=== PATIENT | male | born 1940 | race Asian ===

== ENCOUNTER 2018-01-08 15:13 | Inpatient (IN) | payer OTHER ==
[2018-01-08 16:44] LABS: ADD MAN DIFF? NO
[2018-01-08 16:50] LABS: BASOPHILS % 0.2 % (0.0-2.0); EOSINOPHILS % 0.2 % (0.0-7.0); LYMPHOCYTES # 3.2 10^3/ul (0.8-2.9); LYMPHOCYTES % 26.2 % (15.0-51.0); MEAN CORPUSCULAR HGB CONC 34.2 g/dl (32.0-37.0); MEAN CORPUSCULAR VOLUME 84.8 fl (82.0-101.0); MEAN PLATELET VOLUME 10.6 fl (7.4-10.4); MONOCYTE # 0.8 10^3/ul (0.3-0.9); MONOCYTES % 6.1 % (0.0-11.0); NEUTROPHIL # 8.2 10^3/ul (1.6-7.5); PLATELET COUNT 186 10^3/UL (140-415); RED BLOOD COUNT 4.48 10^6/ul (4.70-6.10); RED CELL DISTRIBUTION WIDTH 13.8 % (11.5-14.5)
[2018-01-08 16:50] LABS: WHITE BLOOD COUNT 12.3 10^3/ul (4.8-10.8)
[2018-01-08] MEDS: SOD CHLORIDE 0.9% 1,000 ML IV (16:57)
[2018-01-08] MEDS: morphine 4 MG/ML VIAL IV (16:57)
[2018-01-08] MEDS: ONDANSETRON 4 MG INJ IV (16:57)
[2018-01-08 17:07] LABS: ALANINE AMINOTRANSFERASE 46 IU/L (13-69); ALBUMIN 4.4 g/dl (3.3-4.9); ALBUMIN/GLOBULIN RATIO 1.25; ALKALINE PHOSPHATASE 44 IU/L (42-121); ANION GAP 20 (8-16); ASPARTATE AMINO TRANSFERASE 32 IU/L (15-46); BILIRUBIN,INDIRECT 0.9 mg/dl (0-1.1); BILIRUBIN,TOTAL 0.9 mg/dl (0.2-1.3); BLOOD UREA NITROGEN 21 mg/dl (7-20); CALCIUM 9.3 mg/dl (8.4-10.2); CARBON DIOXIDE 24 mmol/L (21-31); CHLORIDE 100 mmol/L (97-110); CREATININE 1.32 mg/dl (0.61-1.24); GLUCOSE 175 mg/dl (70-220); LIPASE 52 U/L (23-300); POTASSIUM 4.1 mmol/L (3.5-5.1); SODIUM 140 mmol/L (135-144); TOTAL PROTEIN 7.9 g/dl (6.1-8.1)
[2018-01-08 17:11] LABS: INR 0.96; PROTIME 12.9 Sec (11.9-14.9)
[2018-01-08 17:12] LABS: PARTIAL THROMBOPLASTIN TIME 26.9 Sec (25.0-35.0)
[2018-01-08 17:19] LABS: TROPONIN-I < 0.012 ng/ml (0.00-0.12)
[2018-01-08] MEDS ORDERED: ACETAMINOPHEN 325 MG TAB PO (17:30)
[2018-01-08] MEDS ORDERED: ONDANSETRON 4 MG INJ IV (17:30)
[2018-01-08] MEDS ORDERED: GLUCAGON 1 MG INJ IM (18:30)
[2018-01-08] MEDS ORDERED: GLUCOSE GEL 15 GRAM TUBE PO ×2 (18:30)
[2018-01-08] MEDS ORDERED: NACL 0.9% 3 ML SYG IV (18:30)
[2018-01-08] MEDS ORDERED: GLUCOSE GEL 15 GRAM TUBE BUCCAL (18:30)
[2018-01-08] MEDS ORDERED: DEXTROSE 50% 50 ML SYRINGE IV ×2 (18:30)
[2018-01-08] MEDS ORDERED: hydrALAzine 20 MG INJ IV (19:00)
[2018-01-08] MEDS: D5W-0.45 NACL + KCL 20 MEQ 1,000 ML IV (19:30)
[2018-01-08] MEDS: INSULIN ASPART [NOVOLOG] 3 ML PEN SC (21:07)
[2018-01-08] MEDS: INSULIN GLARGINE [LANtus] 3 ML PEN SC (21:07)
[2018-01-09] MEDS: INSULIN ASPART [NOVOLOG] 3 ML PEN SC ×6 (01:00→21:00)
[2018-01-09] MEDS: ACCU-CHEK XX (02:00)
[2018-01-09] MEDS: morphine 2 MG INJ IV ×4 (04:43→21:12)
[2018-01-09] MEDS: D5W-0.45 NACL + KCL 20 MEQ 1,000 ML IV ×2 (04:57→17:58)
[2018-01-09] MEDS: ONDANSETRON 4 MG INJ IV ×2 (04:57→11:40)
[2018-01-09 08:56] LABS: ADD MAN DIFF? NO
[2018-01-09 09:01] LABS: BASOPHILS % 0.2 % (0.0-2.0); EOSINOPHILS % 0.3 % (0.0-7.0); HEMATOCRIT 33.9 % (42.0-52.0); HEMOGLOBIN 11.6 g/dl (14.0-18.0); LYMPHOCYTES # 2.3 10^3/ul (0.8-2.9); LYMPHOCYTES % 22.3 % (15.0-51.0); MEAN CORPUSCULAR HEMOGLOBIN 29.1 pg (29.0-33.0); MEAN CORPUSCULAR HGB CONC 34.2 g/dl (32.0-37.0); MEAN CORPUSCULAR VOLUME 85.2 fl (82.0-101.0); MEAN PLATELET VOLUME 10.8 fl (7.4-10.4); MONOCYTE # 0.7 10^3/ul (0.3-0.9); MONOCYTES % 6.4 % (0.0-11.0); NEUTROPHIL # 7.1 10^3/ul (1.6-7.5); NEUTROPHILS % 70.5 % (39.0-77.0); PLATELET COUNT 167 10^3/UL (140-415); RED BLOOD COUNT 3.98 10^6/ul (4.70-6.10); RED CELL DISTRIBUTION WIDTH 13.6 % (11.5-14.5)
[2018-01-09 09:01] LABS: WHITE BLOOD COUNT 10.1 10^3/ul (4.8-10.8)
[2018-01-09 09:09] LABS: HEMOGLOBIN A1C 6.3 % (0-5.9)
[2018-01-09 09:16] LABS: ANION GAP 15 (8-16); BLOOD UREA NITROGEN 16 mg/dl (7-20); CALCIUM 8.6 mg/dl (8.4-10.2); CARBON DIOXIDE 27 mmol/L (21-31); CHLORIDE 104 mmol/L (97-110); CREATININE 1.07 mg/dl (0.61-1.24); GLUCOSE 121 mg/dl (70-220); MAGNESIUM 1.9 mg/dl (1.7-2.5); PHOSPHORUS 3.5 mg/dl (2.5-4.9); SODIUM 142 mmol/L (135-144)
[2018-01-09] MEDS: METOCLOPRAMIDE 10 MG INJ IV (15:18)
[2018-01-09] MEDS: INSULIN GLARGINE [LANtus] 3 ML PEN SC (21:15)
[2018-01-09] MEDS ORDERED: VITAMIN A & D 5 GM OINT PACKET TOP (23:31)
[2018-01-10] MEDS: INSULIN ASPART [NOVOLOG] 3 ML PEN SC ×6 (01:11→21:00)
[2018-01-10] MEDS: ACCU-CHEK XX (02:00)
[2018-01-10] MEDS: ONDANSETRON 4 MG INJ IV ×2 (05:06→17:22)
[2018-01-10] MEDS: morphine 2 MG INJ IV ×2 (05:06→08:39)
[2018-01-10] MEDS: D5W-0.45 NACL + KCL 20 MEQ 1,000 ML IV ×3 (05:11→14:59)
[2018-01-10 05:39] LABS: ADD MAN DIFF? NO
[2018-01-10 05:44] LABS: WHITE BLOOD COUNT 9.5 10^3/ul (4.8-10.8)
[2018-01-10 05:44] LABS: BASOPHILS % 0.1 % (0.0-2.0); EOSINOPHILS % 0.3 % (0.0-7.0); HEMATOCRIT 34.2 % (42.0-52.0); HEMOGLOBIN 11.8 g/dl (14.0-18.0); LYMPHOCYTES % 21.5 % (15.0-51.0); MEAN CORPUSCULAR HEMOGLOBIN 29.4 pg (29.0-33.0); MEAN CORPUSCULAR HGB CONC 34.5 g/dl (32.0-37.0); MEAN CORPUSCULAR VOLUME 85.3 fl (82.0-101.0); MEAN PLATELET VOLUME 10.5 fl (7.4-10.4); MONOCYTE # 0.7 10^3/ul (0.3-0.9); MONOCYTES % 7.8 % (0.0-11.0); NEUTROPHIL # 6.6 10^3/ul (1.6-7.5); PLATELET COUNT 163 10^3/UL (140-415); RED BLOOD COUNT 4.01 10^6/ul (4.70-6.10); RED CELL DISTRIBUTION WIDTH 13.3 % (11.5-14.5)
[2018-01-10 06:15] LABS: ANION GAP 13 (8-16); BLOOD UREA NITROGEN 16 mg/dl (7-20); CALCIUM 8.8 mg/dl (8.4-10.2); CARBON DIOXIDE 28 mmol/L (21-31); CHLORIDE 104 mmol/L (97-110); CREATININE 1.14 mg/dl (0.61-1.24); GLUCOSE 131 mg/dl (70-220); PHOSPHORUS 3.6 mg/dl (2.5-4.9); POTASSIUM 4.3 mmol/L (3.5-5.1); SODIUM 141 mmol/L (135-144)
[2018-01-10] MEDS: INSULIN GLARGINE [LANtus] 3 ML PEN SC (20:35)
[2018-01-11] MEDS: D5W-0.45 NACL + KCL 20 MEQ 1,000 ML IV ×3 (00:37→13:01)
[2018-01-11] MEDS: INSULIN ASPART [NOVOLOG] 3 ML PEN SC ×6 (00:37→20:38)
[2018-01-11] MEDS: ACCU-CHEK XX (02:00)
[2018-01-11 05:39] LABS: WHITE BLOOD COUNT 9.1 10^3/ul (4.8-10.8)
[2018-01-11 05:39] LABS: ADD MAN DIFF? NO; BASOPHILS % 0.1 % (0.0-2.0); EOSINOPHILS # 0.1 10^3/ul (0.0-0.5); EOSINOPHILS % 0.8 % (0.0-7.0); HEMATOCRIT 33.4 % (42.0-52.0); HEMOGLOBIN 11.6 g/dl (14.0-18.0); LYMPHOCYTES # 2.2 10^3/ul (0.8-2.9); LYMPHOCYTES % 24.5 % (15.0-51.0); MEAN CORPUSCULAR HEMOGLOBIN 29.8 pg (29.0-33.0); MEAN CORPUSCULAR HGB CONC 34.7 g/dl (32.0-37.0); MEAN CORPUSCULAR VOLUME 85.9 fl (82.0-101.0); MEAN PLATELET VOLUME 11.1 fl (7.4-10.4); MONOCYTE # 0.8 10^3/ul (0.3-0.9); MONOCYTES % 8.3 % (0.0-11.0); NEUTROPHILS % 65.9 % (39.0-77.0); PLATELET COUNT 153 10^3/UL (140-415); RED BLOOD COUNT 3.89 10^6/ul (4.70-6.10); RED CELL DISTRIBUTION WIDTH 13.2 % (11.5-14.5)
[2018-01-11 06:04] LABS: ANION GAP 14 (8-16); BLOOD UREA NITROGEN 17 mg/dl (7-20); CALCIUM 8.9 mg/dl (8.4-10.2); CARBON DIOXIDE 30 mmol/L (21-31); CHLORIDE 103 mmol/L (97-110); CREATININE 1.19 mg/dl (0.61-1.24); GLUCOSE 125 mg/dl (70-220); PHOSPHORUS 3.8 mg/dl (2.5-4.9); POTASSIUM 4.1 mmol/L (3.5-5.1); SODIUM 143 mmol/L (135-144)
[2018-01-11] MEDS: INSULIN GLARGINE [LANtus] 3 ML PEN SC (20:38)
[2018-01-12] MEDS: INSULIN ASPART [NOVOLOG] 3 ML PEN SC ×6 (01:18→21:03)
[2018-01-12] MEDS: ACCU-CHEK XX (02:00)
[2018-01-12] MEDS: D5W-0.45 NACL + KCL 20 MEQ 1,000 ML IV ×3 (02:05→23:57)
[2018-01-12 05:25] LABS: ADD MAN DIFF? NO
[2018-01-12 05:31] LABS: BASOPHILS % 0.1 % (0.0-2.0); EOSINOPHILS # 0.1 10^3/ul (0.0-0.5); EOSINOPHILS % 0.7 % (0.0-7.0); HEMATOCRIT 34.2 % (42.0-52.0); HEMOGLOBIN 11.7 g/dl (14.0-18.0); LYMPHOCYTES # 2.5 10^3/ul (0.8-2.9); LYMPHOCYTES % 27.6 % (15.0-51.0); MEAN CORPUSCULAR HGB CONC 34.2 g/dl (32.0-37.0); MEAN CORPUSCULAR VOLUME 84.9 fl (82.0-101.0); MEAN PLATELET VOLUME 10.8 fl (7.4-10.4); MONOCYTE # 0.7 10^3/ul (0.3-0.9); MONOCYTES % 7.8 % (0.0-11.0); NEUTROPHIL # 5.7 10^3/ul (1.6-7.5); NEUTROPHILS % 63.6 % (39.0-77.0); PLATELET COUNT 169 10^3/UL (140-415); RED BLOOD COUNT 4.03 10^6/ul (4.70-6.10); RED CELL DISTRIBUTION WIDTH 13.1 % (11.5-14.5)
[2018-01-12 05:31] LABS: WHITE BLOOD COUNT 8.9 10^3/ul (4.8-10.8)
[2018-01-12 05:56] LABS: ANION GAP 15 (8-16); BLOOD UREA NITROGEN 23 mg/dl (7-20); CALCIUM 9.3 mg/dl (8.4-10.2); CARBON DIOXIDE 31 mmol/L (21-31); CHLORIDE 102 mmol/L (97-110); CREATININE 1.16 mg/dl (0.61-1.24); GLUCOSE 135 mg/dl (70-220); MAGNESIUM 2.1 mg/dl (1.7-2.5); PHOSPHORUS 4.4 mg/dl (2.5-4.9); POTASSIUM 3.8 mmol/L (3.5-5.1); SODIUM 144 mmol/L (135-144)
[2018-01-12] MEDS: DIATR MEGLU/DIATRIZOATE SODIUM 120 ML BTL (11:59)
[2018-01-12] MEDS: INSULIN GLARGINE [LANtus] 3 ML PEN SC (21:02)
[2018-01-13] MEDS: INSULIN ASPART [NOVOLOG] 3 ML PEN SC ×6 (01:32→21:00)
[2018-01-13] MEDS: ACCU-CHEK XX ×2 (02:00→21:34)
[2018-01-13 05:07] LABS: ADD MAN DIFF? NO
[2018-01-13 05:12] LABS: WHITE BLOOD COUNT 8.1 10^3/ul (4.8-10.8)
[2018-01-13 05:12] LABS: BASOPHILS % 0.2 % (0.0-2.0); EOSINOPHILS # 0.1 10^3/ul (0.0-0.5); EOSINOPHILS % 1.4 % (0.0-7.0); HEMATOCRIT 35.6 % (42.0-52.0); HEMOGLOBIN 11.7 g/dl (14.0-18.0); LYMPHOCYTES # 2.4 10^3/ul (0.8-2.9); LYMPHOCYTES % 29.6 % (15.0-51.0); MEAN CORPUSCULAR HEMOGLOBIN 28.5 pg (29.0-33.0); MEAN CORPUSCULAR HGB CONC 32.9 g/dl (32.0-37.0); MEAN CORPUSCULAR VOLUME 86.8 fl (82.0-101.0); MEAN PLATELET VOLUME 10.9 fl (7.4-10.4); MONOCYTE # 0.7 10^3/ul (0.3-0.9); MONOCYTES % 9.1 % (0.0-11.0); NEUTROPHIL # 4.8 10^3/ul (1.6-7.5); NEUTROPHILS % 59.5 % (39.0-77.0); PLATELET COUNT 187 10^3/UL (140-415); RED CELL DISTRIBUTION WIDTH 13.2 % (11.5-14.5)
[2018-01-13 05:54] LABS: ANION GAP 17 (8-16); BLOOD UREA NITROGEN 33 mg/dl (7-20); CALCIUM 9.2 mg/dl (8.4-10.2); CARBON DIOXIDE 30 mmol/L (21-31); CHLORIDE 105 mmol/L (97-110); CREATININE 1.37 mg/dl (0.61-1.24); GLUCOSE 114 mg/dl (70-220); MAGNESIUM 2.2 mg/dl (1.7-2.5); PHOSPHORUS 4.9 mg/dl (2.5-4.9); POTASSIUM 3.8 mmol/L (3.5-5.1); SODIUM 148 mmol/L (135-144)
[2018-01-13] MEDS: D5W-0.45 NACL + KCL 20 MEQ 1,000 ML IV (08:05)
[2018-01-13] MEDS: LACTOBACILLUS RHAMNOSUS CAP PO ×2 (12:34→17:43)
[2018-01-13] MEDS ORDERED: INSULIN ASPART [NOVOLOG] 3 ML PEN SC (17:55)
[2018-01-13] MEDS: INSULIN GLARGINE [LANtus] 3 ML PEN SC (21:20)
[2018-01-14 06:29] LABS: ALBUMIN 3.9 g/dl (3.3-4.9); ANION GAP 18 (8-16); BLOOD UREA NITROGEN 34 mg/dl (7-20); CALCIUM 8.8 mg/dl (8.4-10.2); CARBON DIOXIDE 25 mmol/L (21-31); CHLORIDE 104 mmol/L (97-110); CREATININE 1.23 mg/dl (0.61-1.24); GLUCOSE 111 mg/dl (70-220); PHOSPHORUS 4.7 mg/dl (2.5-4.9); SODIUM 143 mmol/L (135-144)
[2018-01-14] MEDS: INSULIN ASPART [NOVOLOG] 3 ML PEN SC ×2 (07:50→13:00)
[2018-01-14] MEDS: LACTOBACILLUS RHAMNOSUS CAP PO ×2 (08:43→12:58)
== END 2018-01-14 13:46 | disposition home health service (06) | DRG 389 ==
LOC: MS4 01-09 01:45 → E/R 15:13 → MS1 01-09 22:39 → PP2 17:05
DX: K56.51 Intestinal adhesions [bands], with partial obstruction (principal); F05 Delirium due to known physiological condition; J98.11 Atelectasis; E11.9 Type 2 diabetes mellitus without complications; I10 Essential (primary) hypertension; R00.1 Bradycardia, unspecified; D64.9 Anemia, unspecified; D72.829 Elevated white blood cell count, unspecified; E78.5 Hyperlipidemia, unspecified; K80.20 Calculus of gallbladder without cholecystitis without obstruction; Z85.46 Personal history of malignant neoplasm of prostate; Z98.890 Other specified postprocedural states; Z79.4 Long term (current) use of insulin
CPT/HCPCS: 36415; 71045; 74176; 74250; 80048; 80053; 80069; 82962; 83036; 83690; 83735; 84100; 84484; 85025; 85610; 85730; 93005; 96361; 96372; 96374; 96375; 97161; 99285-25

== ENCOUNTER 2019-03-12 04:19 | Inpatient (IN) | payer OTHER ==
[2019-03-12] MEDS: morphine 2 MG INJ IV ×4 (05:10→21:17)
[2019-03-12] MEDS: ONDANSETRON 4 MG INJ IV ×3 (05:10→16:22)
[2019-03-12] MEDS: SOD CHLORIDE 0.9% 500 ML IV (05:11)
[2019-03-12 05:43] LABS: ADD MAN DIFF? NO
[2019-03-12 06:03] LABS: WHITE BLOOD COUNT 15.5 10^3/ul (4.8-10.8)
[2019-03-12 06:03] LABS: BASOPHILS % 0.2 % (0.0-2.0); EOSINOPHILS % 0.3 % (0.0-7.0); HEMATOCRIT 39.4 % (42.0-52.0); HEMOGLOBIN 13.2 g/dl (14.0-18.0); LYMPHOCYTES # 3.5 10^3/ul (0.8-2.9); LYMPHOCYTES % 22.5 % (15.0-51.0); MEAN CORPUSCULAR HEMOGLOBIN 28.8 pg (29.0-33.0); MEAN CORPUSCULAR HGB CONC 33.5 g/dl (32.0-37.0); MONOCYTE # 0.7 10^3/ul (0.3-0.9); MONOCYTES % 4.6 % (0.0-11.0); NEUTROPHIL # 11.2 10^3/ul (1.6-7.5); NEUTROPHILS % 72.1 % (39.0-77.0); PLATELET COUNT 175 10^3/UL (140-415); RED BLOOD COUNT 4.58 10^6/ul (4.70-6.10); RED CELL DISTRIBUTION WIDTH 13.2 % (11.5-14.5)
[2019-03-12] MEDS: HYDROmorphONE 0.5 MG/0.5 ML SYG IV (06:09)
[2019-03-12 06:19] LABS: ALANINE AMINOTRANSFERASE 26 IU/L (13-69); ALBUMIN 4.5 g/dl (3.3-4.9); ALBUMIN/GLOBULIN RATIO 1.28; ALKALINE PHOSPHATASE 53 IU/L (42-121); ANION GAP 14 (5-13); ASPARTATE AMINO TRANSFERASE 32 IU/L (15-46); BILIRUBIN,INDIRECT 0.9 mg/dl (0-1.1); BILIRUBIN,TOTAL 0.9 mg/dl (0.2-1.3); BLOOD UREA NITROGEN 23 mg/dl (7-20); CALCIUM 10.1 mg/dl (8.4-10.2); CARBON DIOXIDE 23 mmol/L (21-31); CHLORIDE 102 mmol/L (97-110); CREATININE 1.32 mg/dl (0.61-1.24); GLUCOSE 240 mg/dl (70-220); LIPASE 133 U/L (23-300); POTASSIUM 4.9 mmol/L (3.5-5.1); SODIUM 139 mmol/L (135-144)
[2019-03-12] MEDS ORDERED: ONDANSETRON 4 MG INJ IV (07:30)
[2019-03-12 07:50] LABS: INR 0.95; PROTIME 12.8 Sec (11.9-14.9)
[2019-03-12 08:07] LABS: TROPONIN-I < 0.012 ng/ml (0.000-0.120)
[2019-03-12] MEDS ORDERED: MAGNESIUM HYDROXIDE 30ML CUP PO (09:30)
[2019-03-12] MEDS ORDERED: NACL 0.9% 3 ML SYG IV (09:30)
[2019-03-12] MEDS ORDERED: DOCUSATE SODIUM 100 MG CAP PO (09:30)
[2019-03-12] MEDS: DEXTROSE 5%-0.45% NACL 1,000 ML IV ×2 (10:36→21:16)
[2019-03-12 10:43] LABS: HEMOGLOBIN A1C 6.3 % (0-5.9)
[2019-03-12] MEDS ORDERED: DEXTROSE 50% 50 ML SYRINGE IV ×2 (11:30)
[2019-03-12] MEDS ORDERED: hydrALAzine 20 MG INJ IV (11:30)
[2019-03-12] MEDS ORDERED: GLUCAGON 1 MG INJ IM (11:30)
[2019-03-12] MEDS ORDERED: GLUCOSE GEL 15 GRAM TUBE BUCCAL (11:30)
[2019-03-12] MEDS ORDERED: GLUCOSE GEL 15 GRAM TUBE PO ×2 (11:30)
[2019-03-12] MEDS: INSULIN ASPART [NOVOLOG] 3 ML PEN SC ×3 (13:24→21:25)
[2019-03-12] MEDS: METOCLOPRAMIDE 10 MG INJ IV (18:20)
[2019-03-12] MEDS ORDERED: LORAZEPAM 2 MG INJ IV (18:30)
[2019-03-12] MEDS ORDERED: ACETAMINOPHEN 1000MG/100ML IV 100 ML IVPB (18:30)
[2019-03-12] MEDS ORDERED: INSULIN DETEMIR [LEVEMIR] 3ML CART SC (21:00)
[2019-03-12] MEDS: FAMOTIDINE 20 MG INJ IV (21:17)
[2019-03-12] MEDS: INSULIN GLARGINE [LANTus] (100 UNITS/ML) SYG SC (21:26)
[2019-03-12] MEDS: traZODone 100 MG TAB PO ×2 (21:31→23:34)
[2019-03-12] MEDS: ATORVASTATIN 10 MG TAB PO ×2 (21:32→23:34)
[2019-03-13] MEDS: INSULIN ASPART [NOVOLOG] 3 ML PEN SC ×4 (01:38→13:59)
[2019-03-13 04:59] LABS: ADD MAN DIFF? NO
[2019-03-13 05:00] LABS: WHITE BLOOD COUNT 7.3 10^3/ul (4.8-10.8)
[2019-03-13 05:00] LABS: BASOPHILS % 0.1 % (0.0-2.0); EOSINOPHILS % 0.4 % (0.0-7.0); HEMATOCRIT 37.7 % (42.0-52.0); HEMOGLOBIN 12.3 g/dl (14.0-18.0); LYMPHOCYTES # 2.2 10^3/ul (0.8-2.9); LYMPHOCYTES % 29.9 % (15.0-51.0); MEAN CORPUSCULAR HEMOGLOBIN 29.1 pg (29.0-33.0); MEAN CORPUSCULAR HGB CONC 32.6 g/dl (32.0-37.0); MEAN CORPUSCULAR VOLUME 89.3 fl (82.0-101.0); MEAN PLATELET VOLUME 10.7 fl (7.4-10.4); MONOCYTES % 14.1 % (0.0-11.0); NEUTROPHILS % 55.4 % (39.0-77.0); PLATELET COUNT 153 10^3/UL (140-415); RED BLOOD COUNT 4.22 10^6/ul (4.70-6.10)
[2019-03-13 05:19] LABS: ALBUMIN 3.9 g/dl (3.3-4.9); ANION GAP 7 (5-13); BLOOD UREA NITROGEN 24 mg/dl (7-20); CALCIUM 8.8 mg/dl (8.4-10.2); CARBON DIOXIDE 29 mmol/L (21-31); CHLORIDE 105 mmol/L (97-110); CREATININE 1.29 mg/dl (0.61-1.24); GLUCOSE 175 mg/dl (70-220); MAGNESIUM 2.1 mg/dl (1.7-2.5); PHOSPHORUS 4.2 mg/dl (2.5-4.9); POTASSIUM 4.3 mmol/L (3.5-5.1); SODIUM 141 mmol/L (135-144)
[2019-03-13] MEDS: DEXTROSE 5%-0.45% NACL 1,000 ML IV (05:38)
[2019-03-13] MEDS: morphine 2 MG INJ IV (05:46)
[2019-03-13] MEDS: DIATR MEGLU/DIATRIZOATE SODIUM 120 ML BTL PO (06:49)
[2019-03-13] MEDS: FLUOXETINE 20 MG CAP PO (09:23)
[2019-03-13] MEDS: NIFEdipine (XL) 30 MG TAB PO (09:23)
[2019-03-13] MEDS: FAMOTIDINE 20 MG INJ IV ×2 (09:26→20:32)
[2019-03-13] MEDS: SOD CHLORIDE 0.9% 1,000 ML IV (15:42)
[2019-03-13] MEDS ORDERED: INSULIN ASPART [NOVOLOG] 3 ML PEN SC (17:25)
[2019-03-13] MEDS: Insulin NOVOLOG SS MILD Algorithm (SS with meals and bedtime) SC ×2 (17:25→20:35)
[2019-03-13] MEDS: ATORVASTATIN 10 MG TAB PO (20:32)
[2019-03-13] MEDS: traZODone 100 MG TAB PO (20:32)
[2019-03-13] MEDS: INSULIN GLARGINE [LANTus] (100 UNITS/ML) SYG SC (20:38)
[2019-03-14] MEDS: ACCUCHECK AT 2AM (Patients on SS coverage) XX (02:00)
[2019-03-14] MEDS: SOD CHLORIDE 0.9% 1,000 ML IV (05:00)
[2019-03-14 05:07] LABS: ADD MAN DIFF? NO
[2019-03-14 05:12] LABS: BASOPHILS % 0.2 % (0.0-2.0); EOSINOPHILS # 0.1 10^3/ul (0.0-0.5); HEMATOCRIT 32.8 % (42.0-52.0); HEMOGLOBIN 10.7 g/dl (14.0-18.0); LYMPHOCYTES # 3.4 10^3/ul (0.8-2.9); MEAN CORPUSCULAR HEMOGLOBIN 29.4 pg (29.0-33.0); MEAN CORPUSCULAR HGB CONC 32.6 g/dl (32.0-37.0); MEAN CORPUSCULAR VOLUME 90.1 fl (82.0-101.0); MEAN PLATELET VOLUME 10.9 fl (7.4-10.4); MONOCYTE # 0.6 10^3/ul (0.3-0.9); MONOCYTES % 8.9 % (0.0-11.0); NEUTROPHIL # 2.5 10^3/ul (1.6-7.5); NEUTROPHILS % 37.7 % (39.0-77.0); PLATELET COUNT 123 10^3/UL (140-415); RED BLOOD COUNT 3.64 10^6/ul (4.70-6.10); RED CELL DISTRIBUTION WIDTH 13.5 % (11.5-14.5)
[2019-03-14 05:12] LABS: WHITE BLOOD COUNT 6.7 10^3/ul (4.8-10.8)
[2019-03-14 05:53] LABS: ALBUMIN 3.2 g/dl (3.3-4.9); ANION GAP 6 (5-13); BLOOD UREA NITROGEN 16 mg/dl (7-20); CALCIUM 8.2 mg/dl (8.4-10.2); CARBON DIOXIDE 26 mmol/L (21-31); CHLORIDE 108 mmol/L (97-110); CREATININE 1.08 mg/dl (0.61-1.24); GLUCOSE 126 mg/dl (70-220); MAGNESIUM 2.2 mg/dl (1.7-2.5); PHOSPHORUS 3.2 mg/dl (2.5-4.9); POTASSIUM 3.9 mmol/L (3.5-5.1); SODIUM 140 mmol/L (135-144)
[2019-03-14] MEDS: Insulin NOVOLOG SS MILD Algorithm (SS with meals and bedtime) SC ×2 (08:48→12:27)
[2019-03-14] MEDS: NIFEdipine (XL) 30 MG TAB PO (09:11)
[2019-03-14] MEDS: FLUOXETINE 20 MG CAP PO (09:11)
[2019-03-14] MEDS: FAMOTIDINE 20 MG INJ IV (09:11)
== END 2019-03-14 14:25 | disposition home or self-care (01) | DRG 389 ==
LOC: E/R 04:19 → MS1 07:28
DX: K56.600 Partial intestinal obstruction, unspecified as to cause (principal); N17.9 Acute kidney failure, unspecified; E11.9 Type 2 diabetes mellitus without complications; E86.0 Dehydration; I10 Essential (primary) hypertension; E78.5 Hyperlipidemia, unspecified; Z79.4 Long term (current) use of insulin; Z85.46 Personal history of malignant neoplasm of prostate
CPT/HCPCS: 36415; 71045; 74018; 74019; 74176; 80053; 80069; 82962; 83036; 83690; 83735; 84484; 85025; 85610; 85730; 93005; 96374; 96375; 99291-25

== ENCOUNTER 2019-05-26 03:26 | Inpatient (IN) | payer OTHER ==
[2019-05-26] MEDS: morphine 4 MG/ML VIAL IV ×2 (03:38→04:55)
[2019-05-26] MEDS: SOD CHLORIDE 0.9% 500 ML IV (03:39)
[2019-05-26] MEDS: ONDANSETRON 4 MG INJ IV ×3 (03:39→15:29)
[2019-05-26 03:42] LABS: ADD MAN DIFF? NO
[2019-05-26 04:00] LABS: ALANINE AMINOTRANSFERASE 27 IU/L (13-69); ALBUMIN 4.4 g/dl (3.3-4.9); ALBUMIN/GLOBULIN RATIO 1.29; ALKALINE PHOSPHATASE 41 IU/L (42-121); ANION GAP 11 (5-13); ASPARTATE AMINO TRANSFERASE 30 IU/L (15-46); BILIRUBIN,INDIRECT 0.8 mg/dl (0-1.1); BILIRUBIN,TOTAL 0.8 mg/dl (0.2-1.3); BLOOD UREA NITROGEN 19 mg/dl (7-20); CALCIUM 9.9 mg/dl (8.4-10.2); CARBON DIOXIDE 27 mmol/L (21-31); CHLORIDE 101 mmol/L (97-110); CREATININE 1.19 mg/dl (0.61-1.24); GLUCOSE 158 mg/dl (70-220); LIPASE 111 U/L (23-300); POTASSIUM 3.9 mmol/L (3.5-5.1); SODIUM 139 mmol/L (135-144); TOTAL PROTEIN 7.8 g/dl (6.1-8.1)
[2019-05-26 04:03] LABS: ABNORMAL IP MESSAGE 1; BASOPHILS % 0.2 % (0.0-2.0); EOSINOPHILS # 0.1 10^3/ul (0.0-0.5); EOSINOPHILS % 0.8 % (0.0-7.0); HEMATOCRIT 38.6 % (42.0-52.0); HEMOGLOBIN 13.3 g/dl (14.0-18.0); INR 0.93; LYMPHOCYTES # 6.1 10^3/ul (0.8-2.9); LYMPHOCYTES % 37.4 % (15.0-51.0); MEAN CORPUSCULAR HEMOGLOBIN 29.6 pg (29.0-33.0); MEAN CORPUSCULAR HGB CONC 34.5 g/dl (32.0-37.0); MEAN PLATELET VOLUME 10.5 fl (7.4-10.4); MONOCYTE # 0.9 10^3/ul (0.3-0.9); MONOCYTES % 5.2 % (0.0-11.0); NEUTROPHIL # 9.2 10^3/ul (1.6-7.5); PARTIAL THROMBOPLASTIN TIME 22.7 Sec (23.0-35.0); PLATELET COUNT 187 10^3/UL (140-415); POSITIVE DIFF @See below; PROTIME 12.6 Sec (11.9-14.9); RED BLOOD COUNT 4.49 10^6/ul (4.70-6.10); RED CELL DISTRIBUTION WIDTH 13.6 % (11.5-14.5)
[2019-05-26 04:03] LABS: WHITE BLOOD COUNT 16.4 10^3/ul (4.8-10.8)
[2019-05-26] MEDS ORDERED: ACETAMINOPHEN 325 MG TAB PO (05:00)
[2019-05-26 06:00] LABS: ADD UMIC NO; UR ASCORBIC ACID NEGATIVE (NEGATIVE); UR BILIRUBIN (Dip) NEGATIVE (NEGATIVE); UR BLOOD (Dip) NEGATIVE (NEGATIVE); UR CLARITY CLEAR (CLEAR); UR COLOR STRAW (YELLOW); UR GLUCOSE (Dip) NEGATIVE (NEGATIVE); UR KETONES (Dip) NEGATIVE (NEGATIVE); UR LEUKOCYTE ESTERASE (Dip) NEGATIVE Leu/ul (NEGATIVE); UR NITRITE (Dip) NEGATIVE (NEGATIVE); UR SPECIFIC GRAVITY (Dip) 1.006 (1.003-1.030); UR TOTAL PROTEIN (Dip) NEGATIVE (NEGATIVE); UR UROBILINOGEN (Dip) NEGATIVE (NEGATIVE)
[2019-05-26] MEDS ORDERED: morphine 2 MG INJ IV (07:00)
[2019-05-26] MEDS ORDERED: NACL 0.9% 3 ML SYG IV (07:00)
[2019-05-26] MEDS ORDERED: ALBUTEROL/IPRATROPIUM (NEB) 3 ML AMP HHN (07:00)
[2019-05-26] MEDS ORDERED: DEXTROSE 50% 50 ML SYRINGE IV ×2 (08:00)
[2019-05-26] MEDS ORDERED: GLUCAGON 1 MG INJ IM (08:00)
[2019-05-26] MEDS ORDERED: GLUCOSE GEL 15 GRAM TUBE BUCCAL (08:00)
[2019-05-26] MEDS ORDERED: GLUCOSE GEL 15 GRAM TUBE PO ×2 (08:00)
[2019-05-26] MEDS: HYDROmorphONE 0.5 MG/0.5 ML SYG IV (08:12)
[2019-05-26] MEDS: DEXTROSE 5%-0.45% NACL 1,000 ML IV ×3 (09:12→18:55)
[2019-05-26] MEDS: INSULIN ASPART [NOVOLOG] 3 ML PEN SC ×4 (09:15→21:41)
[2019-05-26] MEDS ORDERED: HYDROmorphONE 0.5 MG/0.5 ML SYG IV (09:30)
[2019-05-26] MEDS: hydrALAzine 20 MG INJ IV (09:37)
[2019-05-26] MEDS: IOHEXOL 300MG/ML 150 ML BTL (14:00)
[2019-05-27] MEDS: INSULIN ASPART [NOVOLOG] 3 ML PEN SC ×5 (01:00→17:00)
[2019-05-27] MEDS: ACCU-CHEK XX (02:00)
[2019-05-27 04:54] LABS: ADD MAN DIFF? NO
[2019-05-27 04:58] LABS: BASOPHILS % 0.1 % (0.0-2.0); EOSINOPHILS # 0.1 10^3/ul (0.0-0.5); EOSINOPHILS % 1.2 % (0.0-7.0); HEMATOCRIT 33.6 % (42.0-52.0); HEMOGLOBIN 11.2 g/dl (14.0-18.0); LYMPHOCYTES % 33.6 % (15.0-51.0); MEAN CORPUSCULAR HEMOGLOBIN 29.6 pg (29.0-33.0); MEAN CORPUSCULAR HGB CONC 33.3 g/dl (32.0-37.0); MEAN CORPUSCULAR VOLUME 88.7 fl (82.0-101.0); MEAN PLATELET VOLUME 10.5 fl (7.4-10.4); MONOCYTE # 0.6 10^3/ul (0.3-0.9); MONOCYTES % 7.3 % (0.0-11.0); NEUTROPHIL # 5.1 10^3/ul (1.6-7.5); NEUTROPHILS % 57.6 % (39.0-77.0); PLATELET COUNT 140 10^3/UL (140-415); RED BLOOD COUNT 3.79 10^6/ul (4.70-6.10); RED CELL DISTRIBUTION WIDTH 14.3 % (11.5-14.5)
[2019-05-27 04:58] LABS: WHITE BLOOD COUNT 8.8 10^3/ul (4.8-10.8)
[2019-05-27 05:27] LABS: ALANINE AMINOTRANSFERASE 22 IU/L (13-69); ALBUMIN 3.6 g/dl (3.3-4.9); ALBUMIN/GLOBULIN RATIO 1.24; ALKALINE PHOSPHATASE 28 IU/L (42-121); ANION GAP 5 (5-13); ASPARTATE AMINO TRANSFERASE 21 IU/L (15-46); BLOOD UREA NITROGEN 15 mg/dl (7-20); CALCIUM 8.8 mg/dl (8.4-10.2); CARBON DIOXIDE 31 mmol/L (21-31); CHLORIDE 104 mmol/L (97-110); CREATININE 1.16 mg/dl (0.61-1.24); GLUCOSE 140 mg/dl (70-220); MAGNESIUM 2.1 mg/dl (1.7-2.5); PHOSPHORUS 3.5 mg/dl (2.5-4.9); POTASSIUM 4.4 mmol/L (3.5-5.1); SODIUM 140 mmol/L (135-144); TOTAL PROTEIN 6.5 g/dl (6.1-8.1)
[2019-05-27] MEDS: DEXTROSE 5%-0.45% NACL 1,000 ML IV (05:49)
[2019-05-27] MEDS: PANTOPRAZOLE 40 MG INJ IV (05:50)
[2019-05-27] MEDS: Insulin NOVOLOG SS MILD Algorithm (SS with meals and bedtime) SC (21:00)
[2019-05-27] MEDS ORDERED: INSULIN ASPART [NOVOLOG] 3 ML PEN SC (21:00)
[2019-05-27] MEDS: FAMOTIDINE 20 MG INJ IV (21:16)
[2019-05-28] MEDS: ACCU-CHEK XX (02:00)
[2019-05-28] MEDS: ACCUCHECK AT 2AM (Patients on SS coverage) XX (02:00)
[2019-05-28 05:06] LABS: ADD MAN DIFF? NO
[2019-05-28 05:11] LABS: BASOPHILS % 0.2 % (0.0-2.0); EOSINOPHILS # 0.2 10^3/ul (0.0-0.5); HEMATOCRIT 35.2 % (42.0-52.0); HEMOGLOBIN 11.6 g/dl (14.0-18.0); LYMPHOCYTES # 3.1 10^3/ul (0.8-2.9); LYMPHOCYTES % 38.6 % (15.0-51.0); MEAN CORPUSCULAR HEMOGLOBIN 29.2 pg (29.0-33.0); MEAN CORPUSCULAR VOLUME 88.7 fl (82.0-101.0); MEAN PLATELET VOLUME 10.4 fl (7.4-10.4); MONOCYTE # 0.6 10^3/ul (0.3-0.9); MONOCYTES % 6.8 % (0.0-11.0); NEUTROPHIL # 4.2 10^3/ul (1.6-7.5); PLATELET COUNT 131 10^3/UL (140-415); RED BLOOD COUNT 3.97 10^6/ul (4.70-6.10); RED CELL DISTRIBUTION WIDTH 13.8 % (11.5-14.5)
[2019-05-28 05:11] LABS: WHITE BLOOD COUNT 8.1 10^3/ul (4.8-10.8)
[2019-05-28 05:45] LABS: ANION GAP 6 (5-13); BLOOD UREA NITROGEN 12 mg/dl (7-20); CARBON DIOXIDE 28 mmol/L (21-31); CHLORIDE 104 mmol/L (97-110); GLUCOSE 117 mg/dl (70-220); MAGNESIUM 2.2 mg/dl (1.7-2.5); PHOSPHORUS 3.6 mg/dl (2.5-4.9); POTASSIUM 4.5 mmol/L (3.5-5.1); SODIUM 138 mmol/L (135-144)
[2019-05-28] MEDS: FAMOTIDINE 20 MG INJ IV (08:30)
[2019-05-28] MEDS: Insulin NOVOLOG SS MILD Algorithm (SS with meals and bedtime) SC ×3 (08:30→17:25)
[2019-05-28] MEDS: FLUOXETINE 20 MG CAP PO (13:30)
[2019-05-28] MEDS ORDERED: INSULIN DETEMIR [LEVEMIR] 3ML CART SC (21:00)
[2019-05-28] MEDS ORDERED: ATORVASTATIN 10 MG TAB PO (21:00)
[2019-05-28] MEDS ORDERED: FAMOTIDINE 20 MG TAB PO (21:00)
[2019-05-28] MEDS ORDERED: traZODone 50 MG TAB PO (21:00)
[2019-05-28] MEDS ORDERED: glipiZIDE 10 MG TAB PO (21:00)
[2019-05-28] MEDS ORDERED: INSULIN GLARGINE [LANTus] (100 UNITS/ML) SYG SC (21:00)
[2019-05-29] MEDS ORDERED: CHOLESTYRAMINE 4 GM PACKET PO (09:00)
[2019-05-29] MEDS ORDERED: NIFEdipine (XL) 30 MG TAB PO (09:00)
[2019-05-29] MEDS ORDERED: OXYBUTYNIN (XL) 5 MG TAB PO (09:00)
== END 2019-05-28 19:15 | disposition home or self-care (01) | DRG 390 ==
LOC: E/R 03:26 → MS1 04:33
DX: K56.609 Unspecified intestinal obstruction, unspecified as to partial versus complete obstruction (principal); E11.9 Type 2 diabetes mellitus without complications; E78.5 Hyperlipidemia, unspecified; I10 Essential (primary) hypertension; K82.8 Other specified diseases of gallbladder; Z85.46 Personal history of malignant neoplasm of prostate; Z90.79 Acquired absence of other genital organ(s); Z92.3 Personal history of irradiation; Z79.4 Long term (current) use of insulin
CPT/HCPCS: 36415; 71045; 74176; 74250; 80048; 80053; 81003; 82962; 83690; 83735; 84100; 85025; 85610; 85730; 96374; 96375; 99285-25